=== PATIENT | male | born 1995 | race Caucasian/White ===

== ENCOUNTER 2017-08-18 17:44 | Inpatient (IN) | payer OTHER ==
[~2017-08-18] VITALS: Ht 175.3 cm; Wt 131.8 kg
[~2017-08-18 17:44] MED LIST: ABILIFY 2MG2 MG PO; BUPROPION HYDR150 M1 PO; OLANZAPINE20 M1 PO; PROAIR HFA0.09 MG/Ac INH; SERTRALINE HCL100 MG PO; TRIAMCINOLONE A80 GM TOP
[2017-08-18 18:52] LABS: ABSOLUTE BASOPHIL COUNT 0 /CUMM (0.0-0.2); ABSOLUTE EOSINOPHIL COUNT 0.1 /CUMM (0.0-0.7); ABSOLUTE GRANULOCYTE CT 7.2 /CUMM (1.4-6.5); ABSOLUTE LYMPH COUNT 2.4 /CUMM (1.2-3.4); ABSOLUTE MONOCYTE COUNT 0.4 /CUMM (0.10-0.60); BASOPHIL % 0.3 % (0.0-2.0); EOSINOPHIL % 1.5 % (0-5); GRANULOCYTE % 70.4 % (42.2-75.2); HEMATOCRIT 46.9 % (42-52); MEAN CORPUSCULAR HGB 29.3 PG (27.0-31.0); MEAN CORPUSCULAR HGB CONC 34.4 G/DL (33.0-37.0); MEAN CORPUSCULAR VOLUME 85.3 FL (80.0-94.0); MEAN PLATELET VOLUME 8.4 FL (7.4-10.4); PLATELET COUNT 268 /CUMM (130-400); RBC DISTRIBUTION WIDTH 13.4 % (11.5-14.5); WHITE BLOOD CELL COUNT 10.2 /CUMM (4.8-10.8)
[2017-08-18] MEDS ORDERED: OLANZAPINE10 M1 PO (19:00)
[2017-08-18] MEDS ORDERED: METFORMIN HCL500 M3 PO (19:02)
[2017-08-18] MEDS ORDERED: VRAYLAR1.5 MG PO (19:05)
[2017-08-18] MEDS ORDERED: ATIVAN0.5 M1 PO (19:06)
--- NOTE | 2017-08-18 19:22 | ED NEURO DEFICIT/STROKE ---
See Addendum History of Present Illness General Chief Complaint: Psychiatric Related Complaint Stated Complaint: JESSE PSY EVAL, INCREASED AGGITATION Source: patient, family Exam Limitations: no limitations Vital Signs & Intake/Output Vital Signs & Intake/Output Vital Signs Date Time Temp Pulse Resp B/P B/P Pulse O2 O2 Flow FiO2 Mean Ox Delivery Rate 08/19 1133 98.5 104 143/94 96 08/19 0859 97.4 98 12 180/90 98 08/19 0311 98.8 100 18 144/80 96 Room Air 08/19 0024 99.2 108 20 140/78 96 Room Air 08/18 2356 97.9 106 18 134/88 96 Room Air 08/18 2124 100.0 113 20 164/102 95 Room Air 08/18 1750 96.7 107 16 151/112 96 Room Air ED Intake and Output 08/19 0000 08/18 1200 Intake Total Output Total Balance Patient 3000 lb Weight Weight Reported by Patient Measurement Method Allergies Coded Allergies: amoxicillin (RASH 12/21/15) Reconcile Medications Cariprazine HCl (Vraylar) 1.5 MG CAPSULE 1 CAP PO DAILY MENTAL HEALTH ( Reported) Lorazepam (Ativan) 0.5 MG TABLET 1 TAB PO BIDP PRN ANXIETY (Reported) Metformin HCl 500 MG TABLET 1 TAB PO BID DM (Reported) Olanzapine 10 MG TABLET 2 TAB PO QPM MENTAL HEALTH (Reported) Sertraline HCl 100 MG TABLET 2.5 TAB PO QAM MENTAL HEALTH (Reported) Triage Note: PT BIBLiberty FROM HOME AFTER STATING HE IS HAVING MULTIPLE PERSONALITYS. PT STATES BAD KIMBERLEY IS COMING OUT AND HE REQUESTED THE POLICE TO HANDCUFF HIM SO HE WOULDN'T HURT OTHERS. PT IS +SI + HI PT DENIES DRUG OR ETOH USE AND HAS NO OTHER COMPLAINTS. Triage Nurses Notes Reviewed? yes HPI: 22 yo M PMH Bipolar Disorder presenting with agitation. Per patient and mother, patient has been more agitated for the last 48 hrs, intermittently anxious, yelling, with some agressive posturing, partially responsive to prn ativan. Symptoms much worse this morning, patient extremely agitated, having suicidal thoughts and thoughts about hurting other people ("the bad kimberley was going to come out and I was worried about what he would do"), PD called, patient requested that he be put in handcuffs because he was concerned about hurting someone. Patient attributes to recent changes in medication, 2 days ago started taking 1.5 mg of Cariprazine to replace olanzapine (down titrated form 20 >> 10 mg QD). Endorses anxiety and mild tremors. Denies fevers, chills, chest pain, SOB, palpitations, abdominal Sx, urinary Sx, headache, neck pain or focal neurologic Sx. (Rupesh Roblero MD) Past History Travel History Traveled to [place] past 21 day No Medical History Any Pertinent Medical History? 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 Yes (Rupesh Roblero MD) Review of Systems Review of Systems Constitutional: Reports: no symptoms. EENTM: Reports: no symptoms. Respiratory: Reports: no symptoms. Cardiovascular: Reports: no symptoms. GI: Reports: no symptoms. Genitourinary: Reports: no symptoms. Musculoskeletal: Reports: no symptoms. Skin: Reports: no symptoms. Neurological/Psychological: Reports: see HPI. Hematologic/Endocrine: Reports: no symptoms. Immunologic/Allergic: Reports: no symptoms. All Other Systems: Reviewed and Negative (Rupesh Roblero MD) Physical Exam Physical Exam General Appearance: well developed/nourished, no apparent distress, alert, awake Eyes: Bilateral: PERRL, EOMI, abnormal pupil. Ears, Nose, Throat: moist mucous membrane Neck: normal inspection, full range of motion, no midline tenderness Respiratory: normal breath sounds, no respiratory distress, lungs clear Cardiovascular: tachycardia Gastrointestinal: soft, non-tender Back: normal inspection Cranial Nerves: Tremor Comments: Neurologic: Mild tremor of bilateral upper extremities, no muscular rigidity or clonus, Cr II-XII intact, no motor or sensory deficits Core Measures CVA/TIA Diagnosis: No Sepsis Present: No Sepsis Focused Exam Completed? No (Rupesh Roblero MD) Progress Differential Diagnosis: acute glaucoma, Alvarez's Palsy, drug intoxication, electrolyte imbalance, encephalitis, hypoglycemia, intracranial Hem., intracranial mass/tumor, meningitis, migraine WYMAN, seizure disorder, stroke, subarachnoid Hem., vertebrobasilar insuff. Plan of Care: Orders Procedure Date/time Status Regular Diet 08/19 B Active Add-on Test (ER Only) 08/18 2152 Active Add-on Test (ER Only) 08/19 2103 Active EKG 08/18 1924 Active ED CRISIS PSYCH CONSULT 08/18 1924 Active THYROID STIMULATING HORMONE 08/18 1829 Complete FREE T4 08/18 1829 Complete CREATINE PHOSPHOKINASE 08/18 1829 Complete LACTIC ACID 08/18 1812 Complete Continuous Observation Monitor 08/18 1746 Active URINE DRUG SCREEN FOR ER ONLY 08/18 174 Complete ETHANOL 08/18 1746 Complete COMPREHENSIVE METABOLIC PANEL 08/18 1746 Complete CBC WITHOUT DIFFERENTIAL 08/18 1746 Complete Current Medications Sig/Kristi Start time Last Medication Dose Stop Time Status Admin Olanzapine 20 MG QPM 08/18 2100 UNVr 08/18 (Zyprexa) 2126 Sodium Chloride 1,000 ML BOLUS ONE 08/18 1929 CAN (Normal Saline 0.9%) 08/18 2128 Laboratory Tests 08/18/171829: Lactic Acid 1.8 08/18/171829: Anion Gap 16, Estimated GFR > 60, BUN/Creatinine Ratio 25.0, Glucose 152 H, Calcium 10.3 H, Total Bilirubin 0.9, AST 157 H, ALT 203 H, Alkaline Phosphatase 106, Creatine Kinase 126, Total Protein 8.5 H, Albumin 4.7, Globulin 3.8, Albumin/Globulin Ratio 1.2, TSH 5.880 H, Free T4 0.93, CBC w Diff NO MAN DIFF REQ, RBC 5.50, MCV 85.3, MCH 29.3, MCHC 34.4, RDW 13.4, MPV 8.4, Gran % 70.4, Lymphocytes % 23.5, Monocytes % 4.3, Eosinophils % 1.5, Basophils % 0.3, Absolute Granulocytes 7.2 H, Absolute Lymphocytes 2.4, Absolute Monocytes 0.4, Absolute Eosinophils 0.1, Absolute Basophils 0, Serum Alcohol < 10.0 08/18/171818: Urine Opiates Screen < 100, Methadone Screen < 40, Barbiturate Screen < 60, Ur Phencyclidine Scrn < 6.00, Amphetamines Screen < 100, U Benzodiazepines Scrn 228 H, Urine Cocaine Screen < 50, Urine Cannabis Screen < 5.00 Physician MDM: 22 yo M PMH Bipolar Disorder presenting with agitation. Tachycardic in the 100s, afebrile, anxious on exam but generally calm and cooperative, neurologic exam as above. DDx: Bipolar disorder, Neuroleptic malignant syndrome (given dual anti-psychotic treatment for the last 2 days), hyperthyroidism, less likely serotonin sydrome (given absence of clonus), consider sepsis (though no infectious Sx). ECG sinus tachycardia with RBBB, unchanged from previous. 2L NS for tachycardia, Ativan prn for ?NMS. CBC, CMP unremarkable, mildly elevated LFTs (but no abdominal TTP on exam). CK normal. TSH mildly elevated, FT4 normal, unlikely to be hyperthyroidism. On re- examination patient resting comfortably, tremors improved s/p ativan. I have significant concern for NMS given tachycardia, fever, and mental status change in the setting of new antipsychotic medication. Plan to monitor in ED overnight with IVF and PRN BZD for tachycardia and tremors, re-evaluate symptoms tomorrow for possible admission to inpatient psych. Initial ED EKG: RBBB (Osbaldo PORTER,Rupesh) Hand-Off Endorsed To: Tommie Puga DO Endorsed Time: 0700 Pending: other (bed search) (Marcin Mancia MD) Departure Departure Disposition: STILL A PATIENT Condition: Stable Clinical Impression Primary Impression: Agitation Referrals: Vee PORTER,Leon Lamb (PCP/Family) Departure Forms: Customer Survey General Discharge Information (Rupesh Roblero MD) Resident Co-Sign Statement Statement: ED Attending supervision documentation- I saw and evaluated the patient. I have also reviewed all the pertinent lab results and diagnostic results. I agree with the findings and the plan of care as documented in the Resident's documentation. x I have reviewed the ED Record and agree with the Resident's documentation. [] Additions or exceptions (if any) to the Resident's note and plan are summarized below: [] (Marcin Mancia MD) Departure Comments 08/19/17 The patient was signed out to me by Dr. Mancia. He is pending disposition by crisis (Tommie Puga DO)
--- NOTE | 2017-08-18 21:29 | ED PSYCH CRISIS CONSULTATION ---
Crisis Consult Basic Assessment Date of Consult: 08/18/17 Responsible Person/Accompanied By: Mother (Rebel Hand) [phone] Insurance Authorization: Insurance #1: Insurance name: [employer] Phone number: Policy number: [id number] Group number: [id number] Authorization number: n/a ED Provider: Patient's ED Provider: Osbaldo PORTER,Rupesh Primary Care Physician: Patient's PCP: Leon Baxter MD PCP's Current Psychiatrist: Dr. Diaz at the [facility] Chief Complaint: Psychiatric Related Complaint Patient's Quote: "Jonathon 2 was coming out" Present Illness: Pt. is a 22 year old male BIBA on a PEER that stated that pt.wanted to hurt others and then kill himself. Pt. reports that he has not been feeling like himself since he had his psychiatric medications changed about two days ago. Pt. reports that his psychiatrist, Dr. Diaz decided to try Jonathon on a new medication (Vraylar) with plans to taper him off of his Olanzapine. Pt. reports that two days ago, Dr. Diaz decreased his Olanzapine from 20mg to 10mg and started him on Vraylar, 1.5mg. Pt. reports that yesterday he began hearing voices telling him to hurt other people and to then kill himself. Pt's mother reports that yesterday when pt. told her about the voices, she gave him one of his PRN Ativan's (0.5mg) and that it calmed him down, However today, pt. reports that the voices became even louder and he felt like they were "possessing" his body. Pt. reports that he felt like he could not stop his legs and arms from moving and that it seemd like "Good Jonathon" and "Bad Jonathon" were fighting against each other and he was afraid that he might do what the voices were telling him to do. Pt. called his mother at work and she came home to find pt. screaming that "Bad Jonathon was coming". Pt's mother said that she again gave him a PRN Ativan, hoping that he would calm down, but this time he did not and so she called 911. Pt. said that when the police arrived, he held out his hands so that they could handcuff him and said "get me out of here". Here in the ED, pt. denied any thoughts of wanting to harm others or himself and denied experiencing any AH's. Pt. reports that he has experienced CAH's and suicidal thoughts in the past and that he attempted suicide once in 2013 when he put a belt around his neck because the voices told him to. Pt's mother walked in on him and later took him to the ED. Pt. has never been hospitalized fro psychiatric reasons. The CSSRS was completed with patient. Pt's risk factors are: one past suicide attempt (aborted), suicidal and homicidal thoughts today, CAH's to hurt self and others today, previous psychiatric diagnosis and treatment, recent medication change and agitation today. Pt's protective factors are: lives with mother, has the support of extended family and that he states that he does not want to kill himself or anyone else. Patient's Address: [address] [place] [address] Other Phone Number: Who Do You Live With? Mother Family/Informants Interviewed: Mother (Rebel Hand) Allergies - Coded Allergies: amoxicillin (RASH 12/21/15) Current Medications - Scheduled Medications Cariprazine HCl (Vraylar) 1.5 MG CAPSULE 1 CAP PO DAILY MENTAL HEALTH ( Reported) Entered as Reported by Lin Pinto on 08/18/171904 Last Taken: 08/17/17 Metformin HCl 500 MG TABLET 1 TAB PO BID DM (Reported) Entered as Reported by Lin Pinto on 08/18/171901 Last Taken: 08/18/17 1000 Olanzapine 10 MG TABLET 1 TAB PO QPM MENTAL HEALTH (Reported) Entered as Reported by Lin Pinto on 08/18/171899 Last Taken: 08/17/17 Sertraline HCl 100 MG TABLET 2.5 TAB PO QAM MENTAL HEALTH #30 (Reported) Entered as Reported by iLn Pinto on 12/21/15 230 Last Taken: 08/18/17 1000 Scheduled PRN Medications Lorazepam (Ativan) 0.5 MG TABLET 1 TAB PO BIDP PRN ANXIETY (Reported) Entered as Reported by Lin Pinto on 08/18/171905 Laboratory Results: Laboratory Tests 08/18/171829: Lactic Acid 1.8 08/18/171829: Anion Gap 16, Estimated GFR > 60, BUN/Creatinine Ratio 25.0, Glucose 152 H, Calcium 10.3 H, Total Bilirubin 0.9, AST 157 H, ALT 203 H, Alkaline Phosphatase 106, Total Protein 8.5 H, Albumin 4.7, Globulin 3.8, Albumin/ Globulin Ratio 1.2, TSH 5.880 H, Free T4 Pending, CBC w Diff NO MAN DIFF REQ, RBC 5.50, MCV 85.3, MCH 29.3, MCHC 34.4, RDW 13.4, MPV 8.4, Gran % 70.4, Lymphocytes % 23.5, Monocytes % 4.3, Eosinophils % 1.5, Basophils % 0.3, Absolute Granulocytes 7.2 H, Absolute Lymphocytes 2.4, Absolute Monocytes 0.4, Absolute Eosinophils 0.1, Absolute Basophils 0, Serum Alcohol < 10.0 08/18/171818: Urine Opiates Screen < 100, Methadone Screen < 40, Barbiturate Screen < 60, Ur Phencyclidine Scrn < 6.00, Amphetamines Screen < 100, U Benzodiazepines Scrn 228 H, Urine Cocaine Screen < 50, Urine Cannabis Screen < 5.00 Past History Past Medical History Neurological: NONE EENT: NONE Cardiovascular: NONE Respiratory: NONE Gastrointestinal: NONE Hepatic: NONE Renal: NONE Musculoskeletal: NONE Psychiatric: bipolar disease, depression, schizo affective disorder, ADD ODD Endocrine: NONE Blood Disorders: NONE Cancer(s): NONE 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 Diaz, in past saw Dr. South Reason for Treatment Schizoaffective D/O, Bipolar Type Dates of Treatment past several years to current Response to Treatment bad response to recent med change Diagnosis by History: Schizoaffective D/O, Bipolar Type ADHD Substance Use/Abuse History Drug Use/Abuse Substances Used/Abused No Substance Abuse Treatment Substance Abuse Treatment Past Substance Abuse [place] No Comments: Pt. denies any alcohol or substance use Current Mental Status Mental Status Orientation: Person, Place, Situation Affect: Constricted Speech: WNL Neuro-vegetative: Concentration Poor Appearance Appearance- Dress/Hygiene: somewhat disheveled Behaviors Thought Process: WNL Thought Content: WNL Memory: Impaired Insight: Fair SI/HI Risk Assessment Past Suicidal Ideation/Attempts Yes (one attempt in 2014, past SI ) Current Suicidal Ideation/Att No (pt. denies) Past Homicidal Ideation/Att: Yes (past thoughts only) Current Homicidal Ideation/Attempts No (pt. denies) Degree of Intent: None Danger To: Others, Self Gravely Disabled: none Risk Factors: age (under 24/over 65), high anxiety/distress, history of suicide atmpts, male Lethality Ratin PTSD Checklist PTSD Done? pt unable to participate ED Management Sitter: Yes Restraints: No DSM5/PS Stressors/Medical Prob Diagnosis' (DSM 5, Stressors, Medical): F25.9 - Schizoaffective D/O, Bipolar Type. Stressors - relationship with father , recent medication change, recently denied Disability. Medical - Diabetes, high cholesterol. Current GAF: 24 Comments: Pt. experienced CAH's today telling him to hurt others and kill himself. Althought pt. denied current SI or HI, he admits that he had thoughts earlier today of harming others. Pt. reports recent medication change precipitated the CAH's/SI/HI. Departure Disposition Psych Medical Clearance Date: 08/18/17 Medically Cleared at: 1950 Time Started: 1949 Time Ended: 2024 Psychiatrist Consulted: Alexus Frank MD Date Disposition Established: 08/18/17 Time Disposition Established: 2024 Plan for Disposition - Modality: Bed Search Facility: TBD Contact: n/a Telephone: n/a Rationale for Disposition: Pt. was brought in on a PEER after experiencing CAH's telling him to harm others and then kill himself. Pt. felt like he was "out of control" earlier today. These symptoms emerged yesterday after a medication change. Pt. is at current risk of harm to self/others and is in need of inpatient admission. There are no bed tonight. Pt. will be held over tonight in ED and a bed search will be conducted tomorrow. Type of IP Admission: Voluntary Referrals Leon Baxter MD (PCP/Family)
--- NOTE | 2017-08-19 17:34 | IP CRISIS DIAG ASSESS PSYCH ---
Diagnostic Assessment Basic Assessment Insurance Authorization: Insurance #1: Insurance name: [employer] Phone number: Policy number: [id number] Group number: [id number] Authorization number: Primary Care Physician: Patient's PCP: Leon Baxter MD PCP's Patient's Quote: "Jonathon 2 was coming out" Present Illness: Pt. is a 22 year old male BIBA on a PEER that stated that pt.wanted to hurt others and then kill himself. Pt. reports that he has not been feeling like himself since he had his psychiatric medications changed about two days ago. Pt. reports that his psychiatrist, Dr. Diaz decided to try Jonathon on a new medication (Vraylar) with plans to taper him off of his Olanzapine. Pt. reports that two days ago, Dr. Diaz decreased his Olanzapine from 20mg to 10mg and started him on Vraylar, 1.5mg. Pt. reports that yesterday he began hearing voices telling him to hurt other people and to then kill himself. Pt's mother reports that yesterday when pt. told her about the voices, she gave him one of his PRN Ativan's (0.5mg) and that it calmed him down, However today, pt. reports that the voices became even louder and he felt like they were "possessing" his body. Pt. reports that he felt like he could not stop his legs and arms from moving and that it seemd like "Good Jonathon" and "Bad Jonathon" were fighting against each other and he was afraid that he might do what the voices were telling him to do. Pt. called his mother at work and she came home to find pt. screaming that "Bad Jonathon was coming". Pt's mother said that she again gave him a PRN Ativan, hoping that he would calm down, but this time he did not and so she called 911. Pt. said that when the police arrived, he held out his hands so that they could handcuff him and said "get me out of here". Here in the ED, pt. denied any thoughts of wanting to harm others or himself and denied experiencing any AH's. Pt. reports that he has experienced CAH's and suicidal thoughts in the past and that he attempted suicide once in 2013 when he put a belt around his neck because the voices told him to. Pt's mother walked in on him and later took him to the ED. Pt. has never been hospitalized fro psychiatric reasons. The CSSRS was completed with patient. Pt's risk factors are: one past suicide attempt (aborted), suicidal and homicidal thoughts today, CAH's to hurt self and others today, previous psychiatric diagnosis and treatment, recent medication change and agitation today. Pt's protective factors are: lives with mother, has the support of extended family and that he states that he does not want to kill himself or anyone else. Patient's Address: [address] [place] [address] Other Phone Number: Who Do You Live With? Mother Feel Safe Where You Live? Yes Feel Safe in Your Relationship Yes Marital Status: single Do You Have Children? No Primary Language? Nepali Language(s) Spoken At Home: Nepali Family/Informants Interviewed: Mother (Rebel Hand) Allergies - Coded Allergies: amoxicillin (RASH 12/21/15) Current Medications - Scheduled Medications Cariprazine HCl (Vraylar) 1.5 MG CAPSULE 1 CAP PO DAILY MENTAL HEALTH ( Reported) Entered as Reported by Lin Pinto on 08/18/171904 Last Taken: 08/17/17 Metformin HCl 500 MG TABLET 1 TAB PO BID DM (Reported) Entered as Reported by Lin Pinto on 08/18/171901 Last Taken: 08/18/17 1000 Olanzapine 10 MG TABLET 2 TAB PO QPM MENTAL HEALTH (Reported) Entered as Reported by Lin Pinto on 08/18/171899 Last Taken: 08/17/17 Sertraline HCl 100 MG TABLET 2.5 TAB PO QAM MENTAL HEALTH #30 (Reported) Entered as Reported by Lin Pinto on 12/21/15 230 Last Taken: 08/19/17 1000 Scheduled PRN Medications Lorazepam (Ativan) 0.5 MG TABLET 1 TAB PO BIDP PRN ANXIETY (Reported) Entered as Reported by Lin Pinto on 08/18/171905 Consequences of Psych Med Use: pt reports recent medication change preceded command Lab Results: Laboratory Tests 08/18/171829: Lactic Acid 1.8 08/18/171829: Anion Gap 16, Estimated GFR > 60, BUN/Creatinine Ratio 25.0, Glucose 152 H, Hemoglobin A1c Pending, Calcium 10.3 H, Total Bilirubin 0.9, AST 157 H, ALT 203 H, Alkaline Phosphatase 106, Creatine Kinase 126, Total Protein 8.5 H, Albumin 4.7, Globulin 3.8, Albumin/Globulin Ratio 1.2, Triglycerides Pending, Cholesterol Pending, LDL Cholesterol, Calc ND, HDL Cholesterol Pending, Cholesterol/HDL Ratio Pending, TSH 5.880 H, Free T4 0.93, CBC w Diff NO MAN DIFF REQ, RBC 5.50, MCV 85.3, MCH 29.3, MCHC 34.4, RDW 13.4, MPV 8.4, Gran % 70.4, Lymphocytes % 23.5, Monocytes % 4.3, Eosinophils % 1.5, Basophils % 0.3, Absolute Granulocytes 7.2 H, Absolute Lymphocytes 2.4, Absolute Monocytes 0.4, Absolute Eosinophils 0.1, Absolute Basophils 0, Hepatitis A IgM Ab Pending, Hep Bs Antigen Pending, Hep B Core IgM Ab Conf Pending, Hepatitis C Antibody Pending , Serum Alcohol < 10.0 08/18/171818: Urine Opiates Screen < 100, Methadone Screen < 40, Barbiturate Screen < 60, Ur Phencyclidine Scrn < 6.00, Amphetamines Screen < 100, U Benzodiazepines Scrn 228 H, Urine Cocaine Screen < 50, Urine Cannabis Screen < 5.00 Toxicology Screen Completed? Yes Results: negative Symptoms of Use: denies etoh/substance use Past History Past Surgical History Surgical History none Abuse/Trauma History Trauma History/Current Trauma: Denies Legal History Current Legal Status: none Psychosocial History Strengths/Capabilities: friendly, sense of humor, supportive family, compliant with treatment Physical Limitations (Interventions): none known Psychiatric Treatment History Psych Treatment Psychiatric Treatment Yes Inpatient Treatment No Outpatient Treatment Yes Location of Treatment [facility] - currently sees Dr. Diaz, in past saw Dr. South Reason for Treatment Schizoaffective D/O, Bipolar Type Dates of Treatment past several years to current Response to Treatment bad response to recent med change Diagnosis by History: Schizoaffective D/O, Bipolar Type ADHD Risk Factors: age (under 24/over 65), high anxiety/distress, history of suicide atmpts, male Substance Use/Abuse History Drug Use/Abuse minimum 12mo Hx Substances Used/Abused No Substance Abuse Treatment Substance Abuse Treatment Past Substance Abuse [place] No Education History Highest Level of Education: high school/GED Preferred Learning Style: visual, auditory, experiential Current Mental Status Mental Status Orientation: Person, Place, Situation Affect: Constricted Speech: WNL Neuro-vegetative: Concentration Poor Appearance Appearance- Dress/Hygiene: somewhat disheveled Behaviors Thought Process: WNL Thought Content: WNL Memory: Impaired Insight: Fair SI/HI Risk Assessment - Minimum 6mo History- Past Suicidal Ideation/Attempts Yes (one attempt in 2013, past SI ) Current Suicidal Ideation/Att No (pt. denies) Past Homicidal Ideation/Att: Yes (past thoughts only) Current Homicidal Ideation/Attempts No (pt. denies) Degree of Intent: None Danger To: Others, Self Gravely Disabled: none Risk Factors: age (under 24/over 65), high anxiety/distress, history of suicide atmpts, male Lethality Ratin Needs/Init TX Plan/Goals: Psychiatric Evaluation Medication Assessment Individual Family and Group Meetings Coordinated Discharge Planning AUDIT-C Questionnaire: AUDIT-C Questionnaire: Response Value ETOH use in the past year Never 0 # drinks typical/day Doesn't Drink 0 6 or > drinks per occasion Never 0 Total 0 DSM5/PS Stressors/Medical Prob Diagnosis' (DSM 5, Stressors, Medical): F25.9 - Schizoaffective D/O, Bipolar Type. Stressors - relationship with father, recent medication change, recently denied Disability. Medical - Diabetes, high cholesterol. Current GAF: 24 Comments: Pt. experienced CAH's today telling him to hurt others and kill himself. Althought pt. denied current SI or HI, he admits that he had thoughts earlier today of harming others. Pt. reports recent medication change precipitated the CAH's/SI/HI.
[2017-08-19 21:32] VITALS: BP 136/75
--- NOTE | 2017-08-20 01:12 | History & Physical ---
General Information and HPI MD Statement: I have seen and personally examined KIMBERLEY HOLT and documented this H&P. The patient is a 22 year old M who presented with a patient stated chief complaint of [suicidal ideation]. Source of Information: patient Exam Limitations: no limitations History of Present Illness: 22 yo morbidly obese M with h/o T2DM on metformin, peripheral neuropathy, BPD, depression, schizoaffective d/o, ADD is admitted to [facility] for thoughts of harming himself in the setting of recent change in his psych meds. Please refer to Psych H and P for full details. Patient reports intermittent episodes of diarrhea (2-3 times/ day) since he has been on metformin. He was previusely on metformin 4 times/day. Given his GI issues, his PCP reduced metformin to twice a day dosing. Patient reports some relief, now with less frequent diarrhea although it still persists. He denies blood or mucus in the stools. No abdominal pain or cramping. He also reports urinary frequency but no dysuria or hematuria. He does not check his sugars at home. He is also not a known hypertensive patient. Allergies/Medications Allergies: Coded Allergies: amoxicillin (RASH 12/21/15) Home Med list Cariprazine HCl (Vraylar) 1.5 MG CAPSULE 1 CAP PO DAILY MENTAL HEALTH ( Reported) Lorazepam (Ativan) 0.5 MG TABLET 1 TAB PO BIDP PRN ANXIETY (Reported) Metformin HCl 500 MG TABLET 1 TAB PO BID DM (Reported) Olanzapine 10 MG TABLET 2 TAB PO QPM MENTAL HEALTH (Reported) Sertraline HCl 100 MG TABLET 2.5 TAB PO QAM MENTAL HEALTH (Reported) Compliance With Home Meds: FAIR Past History Travel History Traveled to [place] past 21 day No Medical History Neurological: NONE EENT: NONE Cardiovascular: NONE Respiratory: NONE Gastrointestinal: NONE Hepatic: NONE Renal: NONE Musculoskeletal: NONE Psychiatric: anxiety, bipolar disease, depression, schizo affective disorder, ADD ODD Endocrine: diabetes Blood Disorders: NONE Cancer(s): NONE 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 Psychosocial History Where do you live? Home Who Do You Live With? parent Services at Home: None Primary Language: Kazakh Smoking Status: Never Smoked ETOH Use: denies use Illicit Drug Use: denies illicit drug use Functional Ability ADLs Independent: dressing, eating, toileting, bathing. Ambulation: independent Review of Systems Review of Systems Constitutional: Reports: see HPI. Exam & Diagnostic Data Last 24 Hrs of Vital Signs/I&O Vital Signs Date Time Temp Pulse Resp B/P B/P Pulse O2 O2 Flow FiO2 Mean Ox Delivery Rate 08/19 2132 99.5 92 136/75 08/19 2059 97.5 90 18 154/90 97 Room Air Room Air 08/19 2041 97.7 92 16 163/99 08/19 1934 97.7 92 16 163/99 95 Room Air 08/19 1552 98.2 83 20 176/104 97 Room Air 08/19 1440 98.6 94 20 147/100 96 08/19 1133 98.5 104 143/94 96 08/19 0859 97.4 98 12 180/90 98 08/19 0311 98.8 100 18 144/80 96 Room Air Intake & Output 08/20 0800 08/20 0000 08/19 1600 Intake Total Output Total Balance Patient 291 lb Weight Physical Exam General Appearance Alert, Oriented X3, Cooperative, No Acute Distress Skin No Breakdown, No Significant Lesion HEENT Atraumatic, EOMI, Mucous Membr. moist/pink Neck Supple Cardiovascular Regular Rate, Normal S1, Normal S2, No Murmurs Lungs Clear to Auscultation, Normal Air Movement Abdomen Normal Bowel Sounds, Soft, No Tenderness Neurological Exam Findings: Normal Gait, Normal Speech, Strength at 5/5 X4 Ext, Cranial Nerves 3-12 NL, Reflexes 2+ Cranial Nerves II through XII: intact Extremities No Edema, Normal Pulses, No Tenderness/Swelling Last 24 Hrs of Labs/Danny: Laboratory Tests Admission labs were reviewed. Diagnostic Data EKG Results EKG: Sinus tachycardia, RBBB, QTC 496 CXR Results -- Assessment/Plan Assessment: 22 yo male with T2DM on metformin (last A1c was 6.7 in Mar 2017), and multiple psych issues is admitted for suicidal and homicidal ideation in the setting of recent change in psych meds. 1. Diabetes - continue metformin BID. Check HbA1c (added on). Patient to follow up with PCP upon discharge to decide if he needs to be switched to another OHA if his GI issues persist. 2. If diarrhea is persistent despite change in OHA, he may need outpatient GI referral for work up. 3. c/o urinary frequency which could be related to diabetes, but we will check a urinalysis to ensure we rule out a UTI. 4. Hyperlipidemia I reviewed his lipid panel TG 790, Chol 424, LDL 238, HDL 41. We will repeat a lipid panel in AM and decide about statin therapy. 5. Elevated liver enzymes (AST, ALT) ?etiology ?fatty liver ?medications ( olanzapine) this may preclude use of statin at this point. Hepatitis panel is pending. LFTs have been steadily rising over the past few years. We will check a RUQ ultrasound. 6. Elevated TSH with normal free T4 possible subclinical hypothyroidism. No need for meds at this point. He should follow up with PCP and obtain TFTs in 4-6 weeks. 7. Elevated BP not a known hypertensive. We will watch his BP (last read was 135/75), and if persistently elevated we will initiate lisinopril. 8. Continue management as per Psych team. DVT ppx low risk, early ambulation. As Ranked By This Provider Problem List: 1. Type 2 diabetes mellitus 2. Suicidal ideation Miscellaneous Miscellaneous Documentation Attending Case Discussed With: Tammie Floyd MD Primary Care Physician: Vee PORTER,Leon Lamb Patient sees these Specialists -- Level of Patient Care: LORRI Rincon Attending Review Statement Attending Statement Attending MD Statement: examined this patient, discuss w/resident/PA/BILINGUAL INSTRUCTOR
--- NOTE | 2017-08-20 01:12 | Admission Certification ---
Admission Certification Certification Statement - As attending physician, I certify that at the time of - admission, based on clinical presentation, severity of - symptoms, need for further diagnostic testing and - therapeutic interventions, and risk of adverse outcomes - without in-hospital treatment, in my clinical assessment, - this patient requires an acute hospital stay for a minimum - of two nights or longer. I have also considered psychsocial - factors such as support system, advanced age, financial - issues, cognitive issues, and failed out-patient treatments, - past re-admission history, safety of patient, and lack of - compliance as applicable. Specific rationale supporting this admission is: 22 yo M with suicidal ideation. He has type 2 diabetes and was found to have elevated liver enzymes with hyperlipidemia.
[2017-08-20 07:41] VITALS: BP 141/86
--- NOTE | 2017-08-20 10:18 | ULTRASOUND REPORT ---
US ABDOMEN LIMITED CLINICAL INFORMATION: Elevated liver enzymes.. COMPARISON: None available. TECHNIQUE: Real-time imaging of the right upper quadrant abdominal viscera. FINDINGS: PANCREAS: Normal. LIVER: Increased liver echogenicity suggesting hepatic steatosis. No focal liver lesions. GALLBLADDER: Normal. The gallbladder is physiologically distended without evidence of stones, sludge, polyps, wall thickening or pericholecystic fluid. COMMON BILE DUCT: Normal in caliber measuring 0.3 cm in diameter. RIGHT KIDNEY: Normal. No hydronephrosis. No renal calculi or focal parenchymal lesions. The kidney measures 12.6 cm in maximum dimension. FREE FLUID: None. IMPRESSION: Increased liver echogenicity suggesting hepatic steatosis. Otherwise unremarkable right upper quadrant ultrasound.
--- NOTE | 2017-08-20 10:23 | SOCIAL WORKER PROG NOTE PSYCH ---
Social Work Progress Note Progress Note Pt "feels better now that my meds have been adjusted". Pt signed release and I left a message for a family meeting with his Mother. "She is the best". Pt is wondering if he will be better suited working with a new Dr, although he was sorry for what happened, he is fearful of "Vraylor" the medicine that made me "have split personalities", pt anxious about placement here, and aware of the process for appropriate discharge planning. Pt is pleasant cooperative.
--- NOTE | 2017-08-20 10:45 | CPS PROVIDER INIT ASMT PSYCH ---
Psychiatric Admission Career Development Specialist's Note Reviewed: Yes Patient Seen and Examined: Yes Identifying Information: 22-year-old single white male who was brought into the emergency room by ambulance after 911 was called by his mother Chief Complaint: "Jonathon #2 is coming out" Reaction to Hospitalization: The patient was admitted on a voluntary request for hospitalization, he was calm and cooperative History of Present Illness Onset of Illness: The patient reported that he has been experiencing an increase in his psychotic symptoms due to an attempt to reduce his olanzapine and gradually replaced it with vraylar Circumstances Leading to Admission: The patient reported that he was hearing voices telling him to hurt others and then kill himself. Problem(s) Justifying Need for Admission: Auditory hallucinations with command to hurt self and others Past Psychiatric History Past Diagnosis(es)- if any: Schizoaffective disorder, bipolar type Past Precipitating Factors- if any: Looks like the precipitating factor in this particular admission may have been reductions in the olanzapine and attempt to replace it with another medication due to the patient's prediabetes/diabetes - Include inpatient and outpatient treatment Treatment History: The patient has been attending the [facility] group and has been seeing Dr. Diaz the patient has not been previously in the inpatient psychiatric unit at [facility] History of Suicide Attempts or Gestures Patient denied history of suicide attempts, he was at one point close to an attempt but did not go through with it Substance Abuse History: The patient denied abusing alcohol or substances Allergies: Coded Allergies: amoxicillin (RASH 12/21/15) Home Med List: The patient was on Vraylar 1-1/2 mg daily Metformin 500 mg twice daily Olanzapine 20 mg daily Sertraline 250 mg daily as needed lorazepam 0.5 up to twice a day as needed for anxiety - Include any medical condition(s) that may - impact the patient's recovery/remission Past Medical History: Elevated liver enzymes prediabetes/diabetes Past History Medical History Neurological: NONE EENT: NONE Cardiovascular: NONE Respiratory: NONE Gastrointestinal: NONE Hepatic: NONE Renal: NONE Musculoskeletal: NONE Psychiatric: anxiety, bipolar disease, depression, schizo affective disorder, ADD ODD Endocrine: NONE Blood Disorders: NONE Cancer(s): NONE 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 - #1 Recognizing dangerous situations. - #2 Coping Skills. - #3 Basic information about quitting. Status of Tobacco Cessation Counseling: Not Applicable Cessation Med Status Not Applicable Alcohol Screening - ETOH screen POS if BAL >=80 or Audit-C>= M4/F3 Audit-C Score from Diag Assess: 0 Blood Alcohol Level: Laboratory Tests 08/18 1829 Toxicology Serum Alcohol (<10 MG/DL) < 10.0 Alcohol Use Screening Results: Neg per Audit C &/or BAL - If ETOH counseling indicated - the following topics are required. - #1 Express concern about the patient's - drinking at unhealthy levels, include informing - of national norms for moderate drinking: - men <= 14 drinks/week, max 4 drinks/occasion - women <= 7 drinks/week, max 3 drinks/occasion - #2 Providing feedback, including linking alcohol to - negative physical effects (liver injury, hypertension) - negative emotional effects (relationship problems and - depression) - negative occupational consequences (reduced work - performance) - #3 Advising the patient to abstain from alcohol or - to drink below national norms for moderate drinking - (as listed above). Status of ETOH Use Counseling: N/A B/C NO ETOH Use Metabolic Screening - Screen if on a Neuroleptic Medication - Metabolic screening should include: - Blood Pressure, BMI, Glucose or Hgb A1c, & a - Lipid profile from within the past 365 days. Metabolic Screening Patient on a neuroleptic(s) . Enter below results for Hemoglobin A1C, and lipid panel if obtained during the last 365 days. BMI: 42.900 Blood Pressure: 135/90 Laboratory Results From [facility] (If applicable): Lab Cholesterol 350 MG/DL H 08/20/17 0635 Hemoglobin A1c 9.3 % H 08/18/17 1830 LDL Cholesterol Direct 217.31 mg/dL H 08/20/17 0635 LDL Cholesterol, Calc ND mg/dL 08/20/17 0635 Triglycerides 435 mg/dL H 08/20/17 0635 Exam and Plan Mental Status Examination Ambulation Status: The patient was independently mobile and steady in his gait Appearance: Overweight white male who looks older than his stated age Attitude towards examiner: Calm and cooperative, pleasant Psychomotor activity: Normal psychomotor activity Behavior: No abnormal behaviors Quality of speech: Normal speech, not pressured, not slurred Affect: Constricted range of affect Mood: Depressed and anxious Suicidal Ideation: Denied thoughts of suicide today Homicidal Ideation: Denied thoughts of homicide today Hallucinations: Was still experiencing hallucinations in the past 24 hours but not today Paranoid/Delusional Material: Denied feeling paranoid today there were no delusions Difficulties with thought organization: No difficulties with thought organization Insight: Seems to have good insight Judgment: Seems to have good judgment Orientation: He was alert, oriented to time, place, and person. Cognition: Minor difficulties with attention and concentration Memory Function: No evidence of short-term memory impairment Estimate of intellectual functioning: Average Assets/Strengths Patient Identified Assets/Strengths: The patient is likable, as a supportive mother, and is engaged in treatment Impression/Plan Impression and Plan: 22-year-old single white male with history of schizoaffective disorder presents with command hallucinations to hurt self and others in the context of cross titration between Zyprexa and Vraylar due to weight gain and metabolic side effects including diabetes - Include all active medical diagnosis that require tx DSM 5 Diagnosis(es): Schizoaffective disorder bipolar type Diabetes mellitus and Elevated liver enzymes - Initial Tx Plan for Active Psych & Medical Conditions Treatment Plan: Inpatient psychiatric care with safety checks every 15 minutes Nursing assessments, vital signs, patient education Continue olanzapine 20 mg at bedtime Continue sertraline 200 mg every morning Biopsychosocial assessment, collateral, and aftercare planning - Factors that would help patient function - in a less restrictive setting. Factors: The patient will be discharged early next week if there is no recurrence of command hallucinations
[2017-08-20 12:20] VITALS: BP 135/90
--- NOTE | 2017-08-20 13:23 | PN- Att Addend ---
Attending Addendum Attending Brief Note Labs show persistent increased LFT's (will trend- trending down). RUQ US shows fatty liver with no other pathology. Hepatitis panel negative. Cholesterol/TG remain elevated and are similar to prior values. Although he would benefit from statin, I would hesitate to start with elevated LFT's at present. Will defer to OP physician (Dr. Baxter).
--- NOTE | 2017-08-20 13:35 | SOCIAL WORKER SOCIAL HX PSYCH ---
Social History Basic Assessment Curr Source of Income/Entitlements: Applying for SSDI Primary Care Physician: Patient's PCP: Leon Baxter MD PCP's Primary Language? Croatian Language(s) Spoken At Home: Croatian Living Situation Other Living Arrangement: Lives with mother Feel Safe Where You Are Living Yes Feel Safe in Relationships? Yes Allergies - Coded Allergies: amoxicillin (RASH 12/21/15) Current Medications - Scheduled Medications Cariprazine HCl (Vraylar) 1.5 MG CAPSULE 1 CAP PO DAILY MENTAL HEALTH ( Reported) Entered as Reported by Lin Pinto on 08/18/171904 Last Taken: 08/17/17 Metformin HCl 500 MG TABLET 1 TAB PO BID DM (Reported) Entered as Reported by Lin Pinto on 08/18/171901 Last Taken: 08/18/17 1000 Olanzapine 10 MG TABLET 2 TAB PO QPM MENTAL HEALTH (Reported) Entered as Reported by Lin Pinto on 08/18/171899 Last Taken: 08/17/17 Sertraline HCl 100 MG TABLET 2.5 TAB PO QAM MENTAL HEALTH #30 (Reported) Entered as Reported by Lin Pinto on 12/21/152307 Last Taken: 08/19/17 1000 Scheduled PRN Medications Lorazepam (Ativan) 0.5 MG TABLET 1 TAB PO BIDP PRN ANXIETY (Reported) Entered as Reported by Lin Pinto on 08/18/171905 Past History Past Medical History Neurological: NONE EENT: NONE Cardiovascular: NONE Respiratory: NONE Gastrointestinal: NONE Hepatic: NONE Renal: NONE Musculoskeletal: NONE Psychiatric: anxiety, bipolar disease, depression, schizo affective disorder, ADD ODD Endocrine: NONE Blood Disorders: NONE Cancer(s): NONE 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 Primary Childhood Caretakers: mother Family Life During Childhood: Wasn't good, due to the father's side of the family. DCF Involvement? No Mother's Age (Current/): 51 Relationship w/Mother: "Fantastic. She's my guardian benson." Relationship w/Father: Not good Any Sibling(s)? No Relationship w/Friends: Doesn't really have friends Family Psych/Sub Abuse/Add Hx: None that the pt. is aware of Abuse/Trauma History Trauma History/Current Trauma: Denies Legal History Current Legal Status: none Pending Court Dates: None Have you ever been arrested No Hx of Juvenile Legal Charges? No Hx of Adult Legal Charges? No Psychosocial History Primary Support System: mother Strengths/Capabilities: friendly, sense of humor, supportive family, compliant with treatment Physical Limitations (Interventions): none known Last Physical: Pt. can't recall History of Seizures? No History of Blackouts? No [place]/Social/Peer Relations Doesn't really have friends Meaningful Activities: Relaxing Childhood Sabianism: Orthodox Current Orthodoxy Affiliation: Atheist Is Spirituality Important to You? "As of now, no." Patient's Ethnicity: Czechoslovakian, Kazakh, Tamazight, Bruneian Are There Developmental Issues? No Milestones Achieved: fine motor, gross motor Psychiatric Treatment History Psych Treatment Inpatient Treatment No Outpatient Treatment Yes Location of Treatment [facility] - currently sees Dr. Diaz, in past saw Dr. South Reason for Treatment Schizoaffective D/O, Bipolar Type Dates of Treatment past several years to current Response to Treatment bad response to recent med change Diagnosis: Schizoaffective D/O, Bipolar Type ADHD Risk Factors: age (under 24/over 65), high anxiety/distress, history of suicide atmpts, male Substance Use/Abuse History Drug Use/Abuse Substance Used/Abused No History Symptoms of Use: denies etoh/substance use Education History Highest Level of Education: high school/GED Preferred Learning Style: visual, auditory, experiential HX of Learning Difficulties: ADD Special Communication Needs: None reported Employment History Employment Unemployed No. of Jobs in Last 5 Years: 0 History Have You Been in The ? No Current Mental Status Mental Status Orientation: Person, Place, Situation Affect: Constricted Speech: WNL Neuro-vegetative: Concentration Poor Appearance Appearance- Dress/Hygiene: somewhat disheveled Behaviors Thought Process: WNL Thought Content: WNL Memory: Impaired Insight: Fair SI/HI Risk Assessment Past Suicidal Ideation/Attempts Yes (one attempt in 2013, past SI ) Current Suicidal Ideation/Att No (pt. denies) Past Homicidal Ideation/Att: Yes (past thoughts only) Current Homicidal Ideation/Attempts No (pt. denies) Degree of Intent: None Danger To: Others, Self Gravely Disabled: none Lethality Ratin - Conclusion and Recommendations for treatment - and discharge planning
[2017-08-20 15:50] VITALS: BP 145/97
[2017-08-20 20:04] VITALS: BP 144/84
[2017-08-21 08:11] VITALS: BP 139/91
[2017-08-21 12:28] VITALS: BP 140/95
--- NOTE | 2017-08-21 14:57 | CP SOUTH PROGRESS NOTE PSYCH ---
Psych (Inpt) Progress Note Progress Note Mental Status Examination The patient was independently mobile and steady in his gait, Overweight white male who looks older than his stated age, Calm and cooperative, pleasant, Normal psychomotor activity, No abnormal behaviors, Normal speech, not pressured, not slurred, Constricted range of affect, Depressed and anxious, Denied thoughts of suicide today, Denied thoughts of homicide today Was still experiencing hallucinations in the past 24 hours but not today, Denied feeling paranoid today there were no delusions, No difficulties with thought organization Seems to have good insight, Seems to have good judgment, alert, oriented to time , place, and person. Minor difficulties with attention and concentration, No evidence of short-term memory impairment Assessment: 22-year-old single white male with history of schizoaffective disorder presents with command hallucinations to hurt self and others in the context of cross titration between Zyprexa and Vraylar due to weight gain and metabolic side effects including diabetes DSM 5 Diagnosis(es): Schizoaffective disorder bipolar type Diabetes mellitus and Elevated liver enzymes Treatment Plan: Inpatient psychiatric care with safety checks every 15 minutes; Nursing assessments, vital signs, patient education Continue olanzapine 20 mg at bedtime Continue sertraline 200 mg every morning
--- NOTE | 2017-08-21 14:59 | SOCIAL WORKER PROG NOTE PSYCH ---
Social Work Progress Note Progress Note Had a family meeting this morning with patient and his Mother Chasity. Pt feels much better, Mom notices he is calm and has no concern for his return to her home. She states he is very helpful around the house, and she has a lot of family support including his father once a week and her Mother. Suggested that when he gets home to call [facility] and attempt to get on his own insurance plan, Mom agrees as she states her insurance will end at the end of October. Pt denies si/hi. He had heard voices last night and reports Zyprexa has been helpful, "they are gone", pt offers "I know this is going to sound silly, but I want to get home to my figurines", I inquire, and Mom chimes in "my grandchildren and laughs, he collects Batman they are his prized possession". Pt eager to return home. He has an outpatient provider at [facility] and after IOP plans to return there. Agreeable to [facility], intake scheduled for 1:15pm on 08/22/17.
[2017-08-21 16:14] VITALS: BP 144/88
[2017-08-21 20:00] VITALS: BP 138/92
[2017-08-22 07:48] VITALS: BP 140/83
[2017-08-22] MEDS ORDERED: OLANZAPINE10 M1 PO (07:57)
[2017-08-22] MEDS ORDERED: ZOLOFT100 M1 PO (07:57)
--- NOTE | 2017-08-22 07:59 | Patient Discharge Instructions ---
Psych Discharge Inst General Discharge Information Reason for Admission: audio hallucinations with commands to hurt self and others Psy Discharge Primary Diag+ schizoaffective Disorder Summary Tests/Major Procedures elevated LFTs Studies Pending at DC: None Patient Instructions Contact Information Your Psychiatrist on [facility] was Salvatroe Olson MD * If you are experiencing an emergency related to this hospitalization, please call [phone] to contact the treating psychiatrist or the psychiatrist-on- call. * To Request a copy of your medical records, please contact the Medical Records Department at [phone]. * To request results of studies pending at the time of discharge, please call [phone]. * Continue your Medications until directed to stop by your Healthcare provider. General Medication Information Please continue to take your new medications and your continued home medications , unless otherwise indicated on your discharge medication list, or unless directed by your MD or CONTRACT AGENT to stop them. Special Instructions Diet Diabetic Activity Normal Other Inst/Recommendations follow up with Primary care doctor - Tobacco Use Treatment Offered Post DC Medications Offered: Not Applicable Post DC Tobacco Treatment Plan: Not Applicable - EtOH/Drug Use D/O Treatment Offered Post DC Medications Offered: NA-No EtOH/Drug Use D/O Post DC EtOH/SubAbuse [place] Plan: NA-No EtOH/Drug Use D/O Metabolic Screening Patient on a neuroleptic(s) . Enter below results for Hemoglobin A1C, and lipid panel if obtained during the last 365 days. BMI: 42.900 Blood Pressure: 140/83 Laboratory Results From [facility] (If applicable): Lab Cholesterol 350 MG/DL H 08/20/17 0635 Hemoglobin A1c 9.3 % H 08/18/17 1830 LDL Cholesterol Direct 238.80 mg/dL H 08/18/17 1830 LDL Cholesterol Direct 217.31 mg/dL H 08/20/17 0635 Triglycerides 435 mg/dL H 08/20/17 0635 Advance Directives Does the Patient have Medical Advance Directives No/Refused further info Does Pt have Psychiatric Advance Directives? No/Refused further info Does Patient have a Designated Surrogate Decision Maker: No Information About Psychiatric Advance Directives Provided? Refused Discharge Plan Post Hospital Treatment Plan: IOP
--- NOTE | 2017-08-22 08:01 | DISCHARGE SUMMARY REPORT-PSYCH ---
Visit Information Visit Dates/Diagnosis' Admission Date: 08/19/17 Discharge Date: 08/22/17 Reason for Admission: audio hallucinations with commands to hurt self and others Psy Discharge Primary Diag: schizoaffective Disorder Hospital Course Significant Lab Findings: Lab ALT 177 U/L H 08/20/17 0635 AST 144 U/L H 08/20/17 0635 Cholesterol 350 MG/DL H 08/20/17 0635 Cholesterol/HDL Ratio 9.0 % H 08/20/17 0635 HDL Cholesterol 39 mg/dL L 08/20/17 0635 Hemoglobin A1c 9.3 % H 08/18/17 1830 LDL Cholesterol Direct 238.80 mg/dL H 08/18/17 1830 LDL Cholesterol Direct 217.31 mg/dL H 08/20/17 0635 Triglycerides 435 mg/dL H 08/20/17 0635 Course Complications: The patient had elevated liver enzymes and had liver ultrasound which showed mild fatty changes Consultations: The patient had a history and physical examination as well as a liver ultrasound when he on the inpatient psychiatric unit. He is referred to the patient's electronic record for details Allergies: Coded Allergies: amoxicillin (RASH 12/21/15) Hospital Course/TX Response: Patient had a relatively short admission on the inpatient psychiatric unit as his condition improved significantly and quickly. I did the patient's initial psychiatric assessment on August 20, 2017: The patient was independently mobile and steady in his gait, Overweight white male who looks older than his stated age, Calm and cooperative, pleasant, Normal psychomotor activity, No abnormal behaviors, Normal speech, not pressured, not slurred, Constricted range of affect, Depressed and anxious, Denied thoughts of suicide today, Denied thoughts of homicide today Was still experiencing hallucinations in the past 24 hours but not today, Denied feeling paranoid today there were no delusions, No difficulties with thought organization Seems to have good insight, Seems to have good judgment, alert, oriented to time , place, and person. Minor difficulties with attention and concentration, No evidence of short-term memory impairment Assessment: 22-year-old single white male with history of schizoaffective disorder presents with command hallucinations to hurt self and others in the context of cross titration between Zyprexa and Vraylar due to weight gain and metabolic side effects including diabetes DSM 5 Diagnosis(es): Schizoaffective disorder bipolar type Diabetes mellitus and Elevated liver enzymes Treatment Plan: Inpatient psychiatric care with safety checks every 15 minutes; Nursing assessments, vital signs, patient education Continue olanzapine 20 mg at bedtime Continue sertraline 200 mg every morning on August 21, 2017 there were no changes in the patient's medications. The patient's condition of the time of discharge (08/22/2017) Mental Status Examination: The patient was pleasant, calm, and cooperative. He was steady in his gait, and he looked older than his stated age, He showed normal psychomotor activity, no abnormal behaviors, and his speech was normal (speech was not pressured and not slurred), he showed constricted range of affect, he was not depressed and not anxious, he denied thoughts of suicide today, he denied thoughts of homicide today He denied experiencing hallucinations in the past 24 hours and denied feeling paranoid today there were no delusions, and no difficulties with thought organization The patient seems to have good insight, he seems to have good judgment, alert, oriented to time, place, and person. He showed minor difficulties with attention and concentration, there was no evidence of short-term memory impairment Assessment: The patient is a 22-year-old single white male with history of schizoaffective disorder presents with command hallucinations to hurt self and others in the context of cross titration between Zyprexa and Vraylar due to weight gain and metabolic side effects including diabetes. The patient showed a rather speedy recovery after resuming the previous dose of Zyprexa, discontinuing Vraylar and having a good night's sleep with Ativan 1.5 mg at bedtime. He is agreeable to doing the intensive outpatient program Diagnosis(es): Schizoaffective disorder bipolar type Diabetes mellitus and Elevated liver enzymes Treatment Plan: Discharge home with plan to continue treatment with intensive outpatient program Discharge HBIPS - Tobacco Use Treatment Offered Post DC Medications Offered: Not Applicable Post DC Tobacco Treatment Plan: Not Applicable - EtOH/Drug Use D/O Treatment Offered Post DC Medications Offered: NA-No EtOH/Drug Use D/O Post DC EtOH/SubAbuse [place] Plan: NA-No EtOH/Drug Use D/O Metabolic Screening - Screen if on a Neuroleptic Medication - Metabolic screening should include: - Blood Pressure, BMI, Glucose or Hgb A1c, & a - Lipid profile from within the past 365 days. Metabolic Screening Patient on a neuroleptic(s) . Enter below results for Hemoglobin A1C, and lipid panel if obtained during the last 365 days. BMI: 42.900 Blood Pressure: 140/83 Laboratory Results From [facility] (If applicable): Lab ALT 177 U/L H 08/20/17 0635 AST 144 U/L H 08/20/17 0635 Cholesterol 350 MG/DL H 08/20/17 0635 Cholesterol/HDL Ratio 9.0 % H 08/20/17 0635 HDL Cholesterol 39 mg/dL L 08/20/17 0635 Hemoglobin A1c 9.3 % H 08/18/17 1830 LDL Cholesterol Direct 238.80 mg/dL H 08/18/17 1830 LDL Cholesterol Direct 217.31 mg/dL H 08/20/17 0635 Triglycerides 435 mg/dL H 08/20/17 0635 Discharge Instructions General Discharge Information Multiple Neuroleptics: ([X]) Not Applicable Discharge Diet Diabetic Discharge Activity Normal DC Disposition: Home with follow-up in intensive outpatient program Referrals Ordered Referrals Provider Referral 08/22/17 For Groups: [ IOP] Pt has an intake with IOP: 1:15pm on 08/22/17 [address] Provider Referral 08/27/17 For Providers: [Alina Fuller] For Groups: [[facility]] Pt decided to keep his outpatient appointment with Alina Fuller for 08/27/17 at 11am Prescriptions Stop taking the following medications: Sertraline HCl (Sertraline HCl) 100 MG TABLET ORAL Every Morning Qty = 30 Cariprazine HCl (Vraylar) 1.5 MG CAPSULE ORAL DAILY Continue taking these medications: Metformin HCl (Metformin HCl) 500 MG TABLET 1 Tablet ORAL TWICE DAILY Comments: Last Taken:08/22/17 Time:817 Lorazepam (Ativan) 0.5 MG TABLET 1 Tablet ORAL 2 x Daily as needed as needed for ANXIETY Comments: Last Taken:ORDERED 1.5MG AT BEDTIME IN HOSPITAL ADMIN.08/21/17 Time:2042 Olanzapine (Olanzapine) 10 MG TABLET 2 Tablet ORAL Every night Qty = 30 Comments: Last Taken:08/21/17 Time:2041 This prescription has been renewed Start taking the following new medications: Sertraline HCl (Zoloft) 100 MG TABLET 200 Milligram ORAL DAILY Qty = 30 No Refills Comments: Last Taken:08/22/17 Time:817 Other Inst/Recommendations follow up with Primary care doctor Studies Pending at Discharge None Copies To: -IOP
--- NOTE | 2017-08-22 10:40 | SOCIAL WORKER PROG NOTE PSYCH ---
See Addendum Social Work Progress Note Progress Note Pt is attending groups today, until it's time for discharge. He denies si/hi/ah /vh currently and feels ready to leave the unit. He will attend his IOP intake and has chosen to keep his outpatient appt with Alina from [facility], in case IOP isn't what he expects. Mom is aware and agrees with discharge plan she will meet pt at [facility] around 2pm to bring him home, I encouraged Mom and Jonathon to call [facility] together to get him independent insurance thru the state.
[2017-08-22 12:18] VITALS: BP 141/94
--- NOTE | 2017-08-23 16:55 | SOCIAL WORKER PROG NOTE PSYCH ---
Social Work Progress Note Progress Note [employer] authorized 7 days (LCD 08/25) Reference # [id number] fax# [phone]
== END 2017-08-22 13:04 | DRG 885 ==
LOC: ERH 17:44 → ERHI 08-19 16:34 → CP SOUTH 08-19 16:34 → EDTRNSPT 08-19 21:00 → ENTRNSPT 08-19 21:00 → CMPTRNSPT 08-19 21:17 → CP SOUTH 08-19 21:30 → ENRESERV 08-19 23:59 → CP SOUTH 08-20 10:33
PROVIDERS: Physician Assistant Medical; Psychiatry & Neurology Psychiatry
DX: F25.9 Schizoaffective disorder, unspecified (principal)
CPT/HCPCS: 36415; 80307; 81001; 93005; 93010; 96360; 96361; G0463; G0480; J0515; J1630

== ENCOUNTER 2017-10-31 20:31 | Emergency (ER) | payer OTHER ==
[~2017-10-31] VITALS: Ht 182.9 cm; Wt 129.7 kg
[~2017-10-31 20:31] MED LIST changes: +ATIVAN0.5 M1 PO; +METFORMIN HCL500 M3 PO; +OLANZAPINE10 M1 PO; +VRAYLAR1.5 MG PO; +ZOLOFT100 M1 PO
--- NOTE | 2017-10-31 21:17 | ED PSYCHIATRIC COMPLAINT ---
History of Present Illness General Chief Complaint: Psychiatric Related Complaint Stated Complaint: "I WANT TO HURT MYSELF AND I HAVE A PLAN" Source: patient, family, old records Exam Limitations: no limitations Vital Signs & Intake/Output Vital Signs & Intake/Output Vital Signs Date Time Temp Pulse Resp B/P B/P Pulse O2 O2 Flow FiO2 Mean Ox Delivery Rate 11/01 1114 99.0 92 16 140/98 96 Room Air 11/01 0919 98.4 87 16 138/69 97 Room Air 11/01 0735 98.7 86 17 141/71 98 Room Air 11/01 0550 96.9 88 18 131/65 95 Room Air 10/31 2310 Room Air 10/31 2304 97.0 86 20 140/83 97 Room Air 10/31 2054 98.1 75 20 149/78 95 Room Air ED Intake and Output 11/01 0000 10/31 1200 Intake Total 0 Output Total 0 Balance 0 Intake, Oral 0 Output, Urine 0 Patient 286 lb Weight Weight Reported by Patient Measurement Method Allergies Coded Allergies: amoxicillin (RASH 12/21/15) Reconcile Medications Lorazepam (Ativan) 0.5 MG TABLET 1 TAB PO BIDP PRN ANXIETY (Reported) Metformin HCl 500 MG TABLET 1 TAB PO BID DM (Reported) Olanzapine 10 MG TABLET 2 TAB PO QPM MENTAL HEALTH Sertraline HCl (Zoloft) 100 MG TABLET 200 MG PO DAILY ANXIETY Triage Note: PT HERE WITH C/O SUICIDAL IDEATION. PT REPORTS " I WANNA , EVERY WAKING MOMENT". PT STATES THAT HIS GRANMOTHER TOLD HIM " THE ONLY REASON YOUR MOTHER HAD YOU WAS TO BE A SERVANT TO ME". PT STATES THAT HE IS IRRITABLE AND PEOPLE BOTHER HIM". PT REPORTS HE HAS A PLAN AND WOULD TAKE ALL HIS MEDS AND OD. MOM IS WITH PT AND HAS CONTROLL OF HIS MEDICATION AT PRESENT. MOM STATES SHE WAS AWAY FROM PT FOR A WEEK AND BELIEVES THIS HAS TRIGGERED PTS BEHAVIOR. PT TAKEN BY [facility] NURSE TO ROOM. Triage Nurses Notes Reviewed? yes Onset: Chronic and ongoing Duration: constant, continues in ED, getting worse Timing: recent history Severity: severe Associated Symptoms: impaired concentration, insomnia, suicidal ideation HPI: Patient presents with worsening feelings of worthlessness depression auditory hallucinations telling him to kill himself accompanied with insomnia anorexia fatigue. Reports medication compliance. Denies fever chills nausea vomiting diarrhea abdominal pain chest pain shortness breath headache dysuria rash bleeding homicidal ideation. (Marcin Mancia MD) Past History Travel History Traveled to [place] past 21 day No Medical History Any Pertinent Medical History? 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 Hx Contributory? No (Marcin Mancia MD) Review of Systems Review of Systems Constitutional: Reports: no symptoms. EENTM: Reports: no symptoms. Respiratory: Reports: no symptoms. Cardiovascular: Reports: no symptoms. GI: Reports: no symptoms. Genitourinary: Reports: no symptoms. Musculoskeletal: Reports: no symptoms. Skin: Reports: no symptoms. Neurological/Psychological: Reports: see HPI, cognitive dysfunction, confusion, depressed, emotional problems. Hematologic/Endocrine: Reports: no symptoms. Immunologic/Allergic: Reports: no symptoms. All Other Systems: Reviewed and Negative (Marcin Mancia MD) Physical Exam Physical Exam General Appearance: well developed/nourished, alert, awake, anxious, moderate distress, intoxicated Head: atraumatic, normal appearance Eyes: Bilateral: normal appearance, PERRL, EOMI. Ears, Nose, Throat: normal pharynx, normal ENT inspection, hearing grossly normal Neck: normal inspection, supple, full range of motion, no midline tenderness Respiratory: normal breath sounds, chest non-tender, no respiratory distress, quiet respiration, lungs clear Cardiovascular: regular rate/rhythm, normal peripheral pulses, norml femoral pulses equa Gastrointestinal: normal bowel sounds, soft, non-tender, no organomegaly Extremities: normal range of motion, no ligament instability Neurological/Psychiatric: no motor/sensory deficits, awake, alert, anxious, hog operator II-XII nml as tested, oriented x 3 Appearance/Memory/Insight: disheveled, impaired insight Behavoir/Eye Contact/Speech: avoids eye contact, cooperative, normal speech Thoughts/Hallucinations: auditory hallucinations, paranoid Skin: intact, normal color, warm/dry SAD PERSONS SAD PERSONS Response Value Male Sex? yes 1 Depression/Hopelessness? yes 2 Previous Attempts/Psych Care yes 1 Rational Thinking Loss? yes 2 Single//? yes 1 Social Support? has support 0 Stated Future Intent? yes 2 Total 9 SAD PERSONS Done? yes (Blanche PORTER,Marcin) Progress Differential Diagnosis: drug intoxication, drug overdose, drug withdrawal, electrolyte abnormality, hypoglycemia Plan of Care: Orders Procedure Date/time Status Consistent Carbohydrate 2 11/01 B Active Continuous Observation Monitor 11/01 0505 Active Continuous Observation Monitor 11/01 0105 Active ED CRISIS PSYCH CONSULT 10/31 2109 Active Continuous Observation Monitor 10/31 2108 Active URINE DRUG SCREEN FOR ER ONLY 10/31 2108 Complete ETHANOL 10/31 2108 Complete COMPREHENSIVE METABOLIC PANEL 10/31 2108 Complete CBC WITHOUT DIFFERENTIAL 10/31 2108 Complete Current Medications Sig/Kristi Start time Last Medication Dose Stop Time Status Admin Olanzapine 20 MG QPM 11/01 2100 UNVr (Zyprexa) Sertraline HCl 200 MG DAILY 11/01 0900 UNVr 11/01 (Zoloft) 09 Lorazepam 0.5 MG .[BIDP] PRN 10/31 2114 UNVr (Ativan) 11/07 2113 Metformin HCl 500 MG BID 10/31 2109 UNVr 11/01 (Glucophage) 09 Laboratory Tests 10/31/172144: Anion Gap 14, Estimated GFR > 60, BUN/Creatinine Ratio 25.7 H, Glucose 123 H, Calcium 10.0, Total Bilirubin 0.8, AST 148 H, ALT 176 H, Alkaline Phosphatase 94, Total Protein 7.9, Albumin 4.5, Globulin 3.4, Albumin/Globulin Ratio 1.3, CBC w Diff NO MAN DIFF REQ, RBC 5.54, MCV 84.1, MCH 28.8, MCHC 34.2, RDW 14.0, MPV 8.7, Gran % 63.1, Lymphocytes % 29.6, Monocytes % 4.8, Eosinophils % 1.8, Basophils % 0.7, Absolute Granulocytes 6.0, Absolute Lymphocytes 2.8, Absolute Monocytes 0.5, Absolute Eosinophils 0.2, Absolute Basophils 0.1, Serum Alcohol < 10.0 10/31/172124: Urine Opiates Screen < 100, Methadone Screen < 40, Barbiturate Screen < 60, Ur Phencyclidine Scrn < 6.00, Amphetamines Screen < 100, U Benzodiazepines Scrn 249 H, Urine Cocaine Screen < 50, Urine Cannabis Screen < 5.00 Hand-Off Endorsed To: Luis Felipe Ruelas DO Endorsed Time: 0700 Pending: consult (Marcin Mancia MD) Comments: Dr. Ruelas attending addendum at 1208 hrs. on 11/01/2017: I assumed care from the overnight physician while awaiting crisis evaluation. The crisis team has seen the patient and they have deemed him safe for outpatient management. Diagnosis is schizophrenia, and the patient will follow up with resources as provided by the crisis team. Medical screening examination otherwise negative, patient stable at time of discharge. (Luis Felipe Ruelas DO) Departure Departure Condition: Stable Clinical Impression Primary Impression: Bipolar disorder with depression Secondary Impressions: Auditory hallucinations, Suicidal ideation Referrals: Patient Has No Primary Care Dr (PCP/Family) Departure Forms: Customer Survey General Discharge Information (Marcin Mancia MD) Departure Time of Disposition: 1208 Disposition: HOME OR SELF CARE Additional Instructions: Please follow-up with the resources as provided to by the crisis team. (Luis Felipe Ruelas DO)
[2017-10-31 21:50] LABS: ABSOLUTE BASOPHIL COUNT 0.1 /CUMM (0.0-0.2); ABSOLUTE EOSINOPHIL COUNT 0.2 /CUMM (0.0-0.7); ABSOLUTE LYMPH COUNT 2.8 /CUMM (1.2-3.4); ABSOLUTE MONOCYTE COUNT 0.5 /CUMM (0.10-0.60); BASOPHIL % 0.7 % (0.0-2.0); EOSINOPHIL % 1.8 % (0-5); GRANULOCYTE % 63.1 % (42.2-75.2); HEMATOCRIT 46.5 % (42-52); MEAN CORPUSCULAR HGB 28.8 PG (27.0-31.0); MEAN CORPUSCULAR HGB CONC 34.2 G/DL (33.0-37.0); MEAN CORPUSCULAR VOLUME 84.1 FL (80.0-94.0); MEAN PLATELET VOLUME 8.7 FL (7.4-10.4); RED BLOOD CELL CT 5.54 /CUMM (4.70-6.10); WHITE BLOOD CELL COUNT 9.6 /CUMM (4.8-10.8)
[2017-10-31 22:09] LABS: PLATELET COUNT 217 /CUMM (130-400)
--- NOTE | 2017-11-01 10:31 | ED PSYCH CRISIS CONSULTATION ---
Crisis Consult Basic Assessment Date of Consult: 11/01/17 Responsible Person/Accompanied By: Self and Mother Chasity Insurance Authorization: Insurance #1: Insurance name: [employer] Phone number: Policy number: [id number] Group number: [id number] Authorization number: ED Provider: Patient's ED Provider: Luis Felipe Ruelas DO Primary Care Physician: Patient's PCP: Patient Has No Primary Care Dr PCP's Phone Number: Current Psychiatrist: Janice Mckeon APRN Chief Complaint: Psychiatric Related Complaint Patient's Quote: I feel a lot better after I was having bad thoughts yesterday Present Illness: Pt is a 22 year old male brought in by his mother after expressing suicidual statements saying "I wanna , every waking moment." Crisis met with pt this morning and pt states that he feels a lot better than he did the night before. Pt states that he was having very bad thoughts about self harm but did not go through with it because he came to [facility]. Pt reports that he may need a medication adjustment because he reports feeling "irritable and tired the last couple weeks." Pt reports that he has been taking medications as prescribed. Pt takes Ativan .5mg 2x a day as needed, Zyprexa 20mg, Zoloft 200mg, and Metformin 500mg. Pt reports his depression is a 3 out of 10, 10 being the worse and his anxiety is a 3 out 10. Pt reports his sleep is good, his appetite is good. Pt denies SI, HI, AH, VH at this time. BAL is zero and Utox was positive for presribed benzos. Pt lives with his mother and she is a big support for him and feels safe at home. Pt reports his grandmother as a stressor and that she is "too much." Pt was in CPS from 08/19/17-08/22/17. Pt was in IOP from 08/22/17-09/23/17 and completed the program. Pt is currently attending OPS and is seeing Janice Mckeon APRN. Pt reports his next appoitment is in December. Business Performance Analyst will contact Janice via email on pt's visit to ED and concerns about medications. Business Performance Analyst was able to speak with Mother, Chasity [phone]. Chasity explains she was in the hospital last week for a whole week. She feels as though her being away from him a whole week was a wake up call for him. She reports he was alone and that she feels he realized that she will not always be there for him. This was a stressor for pt. Chasity reports that he needs a medication adjustment due to him being irritable, tired, jones and"not like himself." Chasity reports that he has brouhgt this concern to Janice but she did not feel as though it was necessary. Chasity reports that once he came to the ED and was given Ativan and he "was back to his happy sweet self." Mom reports no safetly concerns or self harm risks. C-SSRS was completed. Risk factors include past suicidal thoughts with plan, wish to be , previous psychiatric diagnoses and treatment, past hopelessness , helplessness, severe anxiety. Protective factors include: reasons to live, supportive mother, connected to community providers, medications complaince, completed [facility] and attending OPS. Patient's Address: [address] [place] [address] Other Phone Number: Who Do You Live With? Mother Family/Informants Interviewed: no family/collateral ID'd Allergies - Coded Allergies: amoxicillin (RASH 12/21/15) Current Medications - Scheduled Medications Metformin HCl 500 MG TABLET 1 TAB PO BID DM (Reported) Entered as Reported by Lin Pinto on 08/18/171901 Olanzapine 10 MG TABLET 2 TAB PO QPM MENTAL HEALTH #30 TAB Prescribed by Salvatore Olson MD on 08/22/17 Sertraline HCl (Zoloft) 100 MG TABLET 200 MG PO DAILY ANXIETY #30 TAB Prescribed by Salvatore Olson MD on 08/22/17 Scheduled PRN Medications Lorazepam (Ativan) 0.5 MG TABLET 1 TAB PO BIDP PRN ANXIETY (Reported) Entered as Reported by Lin Pinto on 08/18/171905 Laboratory Results: Laboratory Tests 10/31/175: Anion Gap 14, Estimated GFR > 60, BUN/Creatinine Ratio 25.7 H, Glucose 123 H, Calcium 10.0, Total Bilirubin 0.8, AST 148 H, ALT 176 H, Alkaline Phosphatase 94, Total Protein 7.9, Albumin 4.5, Globulin 3.4, Albumin/Globulin Ratio 1.3, CBC w Diff NO MAN DIFF REQ, RBC 5.54, MCV 84.1, MCH 28.8, MCHC 34.2, RDW 14.0, MPV 8.7, Gran % 63.1, Lymphocytes % 29.6, Monocytes % 4.8, Eosinophils % 1.8, Basophils % 0.7, Absolute Granulocytes 6.0, Absolute Lymphocytes 2.8, Absolute Monocytes 0.5, Absolute Eosinophils 0.2, Absolute Basophils 0.1, Serum Alcohol < 10.0 10/31/172124: Urine Opiates Screen < 100, Methadone Screen < 40, Barbiturate Screen < 60, Ur Phencyclidine Scrn < 6.00, Amphetamines Screen < 100, U Benzodiazepines Scrn 249 H, Urine Cocaine Screen < 50, Urine Cannabis Screen < 5.00 Past History Past Medical History Neurological: NONE EENT: NONE Cardiovascular: NONE Respiratory: NONE Gastrointestinal: NONE Hepatic: NONE Renal: NONE Musculoskeletal: NONE Psychiatric: anxiety, bipolar disease, depression, schizo affective disorder, ADD ODD Endocrine: diabetes Blood Disorders: NONE Cancer(s): NONE 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 Past Surgical History Surgical History: non-contributory Psychosocial History Strengths/Capabilities: friendly, sense of humor, supportive family, compliant with treatment, agreeable to treatment Physical Limitations (Interventions): none known Psychiatric Treatment History Psych Treatment Psychiatric Treatment Yes Inpatient Treatment Yes Outpatient Treatment Yes Location of Treatment [facility]PS, IOP, OPS Reason for Treatment Psychiatric complaints Dates of Treatment CPS 08/19/17-08/22/17 IOP 08/22/17-09/23/17 OPS 10/09/17-present Response to Treatment Completed IOP and currently attending OPS Diagnosis by History: Schizoaffective D/O, Bipolar Type ADD, Depression Substance Use/Abuse History Drug Use/Abuse Substances Used/Abused Yes Substance Used/Abused Benzodiazepines (Ativan) First Use unk Last Used yesterday How much used/taken one tablet 2x a day How often pt reports taking as needed For how long unk Route of use oral Substance Abuse Treatment Substance Abuse Treatment Past Substance Abuse TX No Inpatient Treatment No Location of Treatment n/a Reason for Treatment n/a Dates of Treatment n/a Response to Treatment n/a Current Mental Status Mental Status Orientation: Person, Place, Situation Affect: Appropriate, WNL Speech: Normal, WNL Neuro-vegetative: WNL Appearance Appearance- Dress/Hygiene: Pt is dressed in hospital scrubs laying in bed, good hygiene Behaviors Thought Process: WNL Thought Content: WNL Memory: WNL Insight: Fair SI/HI Risk Assessment Past Suicidal Ideation/Attempts Yes Current Suicidal Ideation/Att No Past Homicidal Ideation/Att: No Current Homicidal Ideation/Attempts No Degree of Intent: Thoughts/No Intent Danger To: Self Risk Factors: age (under 24/over 65), high anxiety/distress, history of suicide atmpts, SA/MH hospitalized, lack of outcome concern, male Lethality Ratin (mild) PTSD Checklist PTSD Done? patient declined ED Management Sitter: Yes Restraints: No DSM5/PS Stressors/Medical Prob Diagnosis' (DSM 5, Stressors, Medical): F25.9 Schizoaffective disorder F32.9 unspecified depression F41.9 unspecified anxiety Diabetes Current GAF: 61 Departure Disposition Psych Medical Clearance Date: 11/01/17 Medically Cleared at: 0800 Time Started: 0830 Time Ended: 0900 Psychiatrist Consulted: Dr. Salvatore Olson Date Disposition Established: 11/01/17 Time Disposition Established: 1015 Plan for Disposition - Modality: Discharge Rationale for Disposition: Pt is being discharged home with his mother. Business Performance Analyst consulted with Dr. lCifton and pt' s mother. No safetly concerns were reported. Janice Mckeon APRN will be contacted with pt's concern about medication adjustment. Pt's mother reported she was in the hospital and it was a wake up call for pt that his mother will not always be there. Mother reports he became his old self once he was given his Ativan. Pt's mother has no safety concerns at this time. Pt is denies SI, HI, VH , AH at this time. Referrals Patient Has No Primary Care Dr (PCP/Family)
[2017-11-01 11:14] VITALS: BP 140/98
== END 2017-11-01 12:18 ==
LOC: ERH 20:31
PROVIDERS: Emergency Medicine
DX: F31.9 Bipolar disorder, unspecified (principal); R44.0 Auditory hallucinations; R45.851 Suicidal ideations
CPT/HCPCS: 80307; G0480